=== PATIENT | female | born 1960 | race Caucasian/White ===

== ENCOUNTER → 2017-09-03 | Outpatient (CLI) | payer MEDICARE, OTHER ==
[~2017-09-03] MED LIST: BUPIVACAINE MPF 0.25% 10 ML VIAL. ONE; IOHEXOL 300 MG/ML 50 ML VIAL. ONE; LIDOCAINE 1% PF 30 ML VIAL. ONE; methylPREDNISolone ACETATE 40 MG/ML VIAL. ONE
== END | disposition home or self-care (01) ==
LOC: SURG 11:04
PROVIDERS: ATTEND Anesthesiology Pain Medicine
DX: M51.16 Intervertebral disc disorders with radiculopathy, lumbar region (principal); M47.26 Other spondylosis with radiculopathy, lumbar region
CPT/HCPCS: 64483; 64484; J1030; J2001; J3490; Q9967

== ENCOUNTER → 2018-01-08 | Outpatient (CLI) | payer MEDICARE | END | disposition home or self-care (01) | LOC: SURG 13:47 | PROVIDERS: ATTEND Anesthesiology Pain Medicine | DX: M54.16 Radiculopathy, lumbar region (principal); M47.816 Spondylosis without myelopathy or radiculopathy, lumbar region | CPT/HCPCS: 63661; 99213 ==

== ENCOUNTER 2021-05-10 13:42 | Emergency (ER) | payer MEDICARE, OTHER ==
[~2021-05-10] VITALS: Ht 175.3 cm; Wt 78.1 kg
--- NOTE | 2021-05-10 14:19 | PHYS DOC ---
Adult General HPI HPI Patient is a 61-year-old female presents emergency department chief complaint of rash to her face that started shortly after receiving her second dose of COVID- 19 virus vaccination from the Moderna decontaminator. Patient complains of itching to the rash, states it does feel painful if pushing or rubbing on it. Patient denies any other physical complaints or physical concerns related to her rash. Patient states on 02 May she received her second immunization dose in her right shoulder. Patient states the next day she started to feel tired with general malaise, stating that within 2 days the rash started on the right side of her face. Patient states she seen her primary care physician that day and was diagnosed with shingles however stated that she has had shingles in the past and her previous shingle exacerbation was very painful and had open sores, this rash is not presenting the same way. Patient states it has since spread to the left side of her face, down to her neck area, and on the left breast area. Patient states she was sent here by her primary care physician for further evaluation by the ER. Patient denies fever or chills, denies shortness of breath or chest pain. Patient denies loss of consciousness, visual disturbances, or syncopal episodes or dizziness. Patient denies any other physical complaints or physical concerns. (JAQUAN VELEZ APRN) Review of Systems Review of Systems 14 body systems of review of systems have been reviewed. See HPI for pertinent positives and negative responses, otherwise all other systems are negative, nonpertinent or noncontributory. Constitutional: Negative except as outlined in HPI above. Skin: Negative except as outlined in HPI above. Eyes: Negative except as outlined in HPI above. HENT: Negative except as outlined in HPI above. Respiratory: Negative except as outlined in HPI above. Cardiovascular: Negative except as outlined in HPI above. GI: Negative except as outlined in HPI above. : Negative except as outlined in HPI above. Musculoskeletal: Negative except as outlined in HPI above. Integument: Negative except as outlined in HPI above. Neurologic: Negative except as outlined in HPI above. Endocrine: Negative except as outlined in HPI above. Lymphatic: Negative except as outlined in HPI above. Psychiatric: Negative except as outlined in HPI above. (JAQUAN VELEZ APRN) Physical Exam Physical Exam Constitutional: Well developed, well nourished, no acute distress, non-toxic appearance. 61-year-old female in no apparent distress. HENT: Normocephalic, atraumatic. No lymphadenopathy of the head or neck, no drooling, patient speaking in normal voice tones, no infectious process appreciated of the oropharynx or oral cavity. No sores or lesions of the oral cavity or oral mucosa. Eyes: Conjunctiva normal, no discharge. Neck: Normal range of motion, no stridor. No nuchal rigidity, no meningismus signs. Cardiovascular: No cyanosis appreciated, distal cap refill less than 2 seconds. Lungs & Thorax: Patient is in no respiratory distress, no audible adventitious lung sounds appreciated. Abdomen: Nontender, no abnormalities noted. Skin: Warm, dry, no erythema, no rash. Morbilliform rash to forehead, face and a butterfly pattern, around lips, bilateral neck area, just underneath left breast at fold, skin is intact, there is no open lesions, no weeping or drainage appreciated, pruritic in nature per patient complaint, painful with palpation, no lymphadenopathy of the axillary or inguinal area. Rashes erythematous in color. Back: No tenderness, no deformities. Extremities: No tenderness, no cyanosis, no clubbing, ROM intact, no edema. Neurologic: Alert and oriented X 3, normal motor function, normal sensory function, no focal deficits noted. Psychologic: Affect normal, judgement normal, mood normal. (JAQUAN VELEZ APRN) EKG EKG [] (JAQUAN VELEZ APRN) Radiology/Procedures Radiology/Procedures [] (JAQUAN VELEZ APRN) Heart Score C/O Chest Pain: No Risk Factors: Risk Factors: DM, Current or recent (<one month) smoker, HTN, HLP, family history of CAD, obesity. Risk Scores: Risk Factors: DM, Current or recent (<one month) smoker, HTN, HLP, family history of CAD, obesity. (JAQUAN VELEZ APRN) Course & Med Decision Making Course & Med Decision Making Pertinent Labs and Imaging studies reviewed. (See chart for details) 61-year-old female, vital signs reviewed, resents emergency department with complaint of rash to face since receiving the COVID-19 vaccination. Physical examination consistent with adverse vaccination reaction. After extensive review of recent [employer] the [employer] articles specifically related to COVID-19 vaccination Moderna type, patient's morbilliform rash is similar and consistent with adverse COVID-19 vaccination reactions covered in these articles. Patient will be treated with 1 L normal saline, 125 mg Solu-Medrol, 25 mg Benadryl, 20 mg Pepcid intravenously, will reevaluate after period of time. After period of time, patient's rash resolving some, bright red erythemic color is now light pink, no spread of rash appreciated, patient reports no longer itching. Discussed with patient findings related to dermatology articles, diagnosis of adverse reaction to vaccination, continue to use [id number] Benadryl and Pepcid along with prescribed Medrol Dosepak, strict follow-up with primary care this week, if worsening follow-up with dermatology. Patient gave verbal understanding of discharge home instructions, follow-up with PCP, return ER precautions or concerns, remained hemodynamically stable, nontoxic in appearance, in no apparent distress during emergency department stay, patient was discharged home without incident. (JAQUAN VELEZ APRN) Dragon Disclaimer Dragon Disclaimer This electronic medical record was generated, in whole or in part, using a voice recognition dictation system. (JAQUAN VELEZ APRN) Attending Co-Sign The patient was seen and interviewed as well as examined at the bedside. The chart was reviewed. The case was discussed. Agree with the plan of care. (TIFFANIE MONROY DO) Departure Departure: Impression: Primary Impression: Post-vaccination reaction Additional Impression: Skin rash Disposition: HOME / SELF CARE / HOMELESS Condition: GOOD Referrals: YA FERNANDEZ (PCP) Patient Instructions: Immunization Reaction, Rash Additional Instructions: You were seen today in the emergency department for a rash of your skin that started just days after receiving the second dose of your COVID-19 vaccination Moderna. You were treated today with 1 L of normal saline, 25 mg Benadryl, 20 mg Pepcid, 125 mg Solu-Medrol intravenously. Your skin rash reaction is consistent with an similar with dermatologic reports and articles written about this particular vaccination. I suspect with this presentation that your rash is related to your recent vaccination of the COVID-19 type. I suspect the skin rash will subside after time, please continue to take Benadryl and Pepcid as we discussed [id number]. I am prescribing you a Medrol Dosepak, please fill this medication and take as directed until completed. Please follow-up with your primary care physician Dr. Soares for ongoing symptoms, for ongoing rash symptoms and worsening rash symptoms, please follow-up with a hat forming machine feeder, you may consider using the [facility] Dermatology group located at [address] [place] [address]. Their telephone number is area code [phone], their office hours are Thursday and from 8 AM until 4:30 PM. It was a pleasure taking care of you today in the emergency department and I thank you for allowing me to participate in your emergency healthcare needs. EMERGENCY DEPARTMENT GENERAL DISCHARGE INSTRUCTIONS Thank you for coming to [facility] (ED) today and trusting us with you care. We trust that you had a positivie experience in our Emergency Department. If you wish to speak to the department management, you may call the director at [phone]. YOUR FOLLOW UP INSTRUCTIONS ARE FOLLOWS: 1. Do you have a private Doctor? If you do not have a private doctor, please ask for a resource list of physicians or clinics that may be able to assist you with follow up care. 2. The Emergency Physician has interpreted your x-rays. The X-Ray specialist will also review them. If there is a change in the findings, you will be notified in 48 hours when at all possible. 3. A lab test or culture has been done, your results will be reviewed and you will be notified if you need a change in treatment. ADDITIONAL INSTRUCTIONS AND INFORMATION: 1. Your care today has been supervised by a physician who is specially trained in emergency care. Many problems require more than one evaluation for a complete diagnosis and treatment. We recommend that you schedule your follow up appointment as recommended to ensure complete treatment of you illness or injury. If you are unable to obtain follow up care and continue to have a problem, or if your condition worsens, we recommend that you return to the ED. 2. We are not able to safely determine your condition over the phone nor are we able to give sound medical advice over the phone. For these safety reasons, if you call for medical advice we will ask you to come to the ED for further evaluation. 3. If you have any questions regarding these discharge instructions please call the ED at [phone]. SAFETY INFORMATION: In the interest of safety, wellness, and injury prevention; we encourage you to wear your sealbelt, if you smoke; quite smoking, and we encourage family to use a protective helmet for bicycling and other sporting events that present an increased risk for head injury. IF YOUR SYMPTOMS WORSEN OR NEW SYMPTOMS DEVELOP, OR YOU HAVE CONCERNS ABOUT YOUR CONDITION; OR IF YOUR CONDITION WORSENS WHILE YOU ARE WAITING FOR YOUR FOLLOW UP APPOINTMENT; EITHER CONTACT YOUR PRIMARY CARE DOCTOR, THE PHYSICIAN WHOSE NAME AND NUMBER YOU WERE GIVEN, OR RETURN TO THE ED IMMEDIATELY. Scripts Methylprednisolone (MEDROL) 4 Mg Tab.ds.pk 1 PKG PO UD for skin reaction, #1 PKG 0 Refills Prov: JAQUAN VELEZ APRN 05/10/21 Problem Qualifiers Primary Impression: Post-vaccination reaction Encounter type: initial encounter Qualified Codes: T88.1XXA - Other complications following immunization, not elsewhere classified, initial encounter JAQUAN VELEZ APRN May 10, 2021 14:18 TIFFANIE MONROY DO May 11, 2021 10:34
[2021-05-10] MEDS ORDERED: methylPREDNISolone SOD SUCC PF 125 MG/2 ML VIAL. IV ONE (14:45)
[2021-05-10] MEDS ORDERED: FAMOTIDINE 20 MG/2 ML VIAL IVP ONE (14:45)
[2021-05-10] MEDS ORDERED: diphenhydrAMINE 50 MG/ML VIAL IVP ONE (14:45)
[2021-05-10] MEDS ORDERED: IV NORMAL SALINE 1,000ML 1,000 ML IV ONE (14:45)
[2021-05-10 15:12] LABS: BASO # 0.1 x10^3/uL (0.0-0.2); BASO % 1 % (0-3); EOS # 0.1 x10^3/uL (0.0-0.7); EOS % 2 % (0-3); HEMATOCRIT 42.5 % (36.0-47.0); HEMOGLOBIN 13.8 g/dL (12.0-15.5); LYMPH % 33 % (24-48); MEAN CORPUSCULAR HEMOGLOBIN 30 pg (25-35); MEAN CORPUSCULAR HGB CONC 33 g/dL (31-37); MEAN CORPUSCULAR VOLUME 91 fL (79-100); MONO # 0.6 x10^3/uL (0.0-1.1); MONO % 10 % (0-9); NEUT # 3.3 x10^3uL (1.8-7.7); NEUT % 55 % (31-73); PLATELET COUNT 301 x10^3/uL (140-400); RED BLOOD COUNT 4.67 x10^6/uL (3.50-5.40); RED CELL DISTRIBUTION WIDTH 13.5 % (11.5-14.5)
[2021-05-10 15:20] LABS: CREATININE 0.8 mg/dL (0.6-1.0); GFR 73.4; POTASSIUM 3.9 mmol/L (3.5-5.1)
[2021-05-10 15:48] VITALS: BP 120/67
[2021-05-10] MEDS ORDERED: METH4TAB2 PO (15:52)
== END 2021-05-10 16:08 | disposition home or self-care (01) ==
LOC: ER 13:42
DX: R21 Rash and other nonspecific skin eruption (principal); T50.B95A Adverse effect of other viral vaccines, initial encounter; Y92.89 Other specified places as the place of occurrence of the external cause
CPT/HCPCS: 36415; 80048; 85025; 96361; 96374; 96375; 99284; J1200; J2930; J3490; J7030